=== PATIENT | female | born 1955 | race Caucasian/White ===

== ENCOUNTER 2017-07-29 00:56 | Emergency (ER) | payer OTHER ==
[2017-07-29 01:24] VITALS: BP 121/64
[2017-07-29] MEDS ORDERED: NAPROXEN 250 MG TABLET PO ONE (01:36)
[2017-07-29] MEDS ORDERED: OXYCODONE HCL IR 5 MG TABLET PO ONE (01:36)
--- NOTE | 2017-07-29 01:42 | ER Document Report ---
ED Neck/Back Problem - General Chief Complaint: Back Pain Stated Complaint: BACK PAIN Time Seen by Provider: 07/29/17 01:30 Notes: The patient is a 62-year-old female, past medical history chronic low back pain status post extensive lumbar and thoracic robotic fusion 3 weeks ago at [facility], diabetes, hypertension, hyperlipidemia, right hip replacement, presents with pain around her surgical site and spasming. She takes gabapentin and Flexeril with relief of her spasming, but she does not have any more oxycodone 5 mg left. She called her spine surgeon in [place] and will have the medications in 3 days, but she is requesting medications to tide her over until then. She recently moved to [place] from [place] and said she will call tomorrow to set up an appointment with pain management. Denies change in bowel or bladder, fevers, drainage from the wounds, saddle anesthesia, difficulty walking, focal weakness or sensory changes. TRAVEL OUTSIDE OF THE U.S. IN LAST 30 DAYS: No - Related Data Allergies/Adverse Reactions: No Known Allergies Allergy (Unverified 07/29/17 01:05) Past Medical History - General Information source: Patient - Social History Smoking Status: Never Smoker Frequency of alcohol use: None Drug Abuse: None Lives with: Spouse/Significant other Family History: Reviewed & Not Pertinent Review of Systems - Review of Systems Notes: REVIEW OF SYSTEMS: CONSTITUTIONAL: -fevers, -chills EENT: -eye pain, -difficulty swallowing, -nasal congestion CARDIOVASCULAR: -chest pain, -syncope. RESPIRATORY: -cough, -SOB GASTROINTESTINAL: -abdominal pain, -nausea, -vomiting, -diarrhea GENITOURINARY: -dysuria, -hematuria MUSCULOSKELETAL: +back pain, -neck pain SKIN: -rash or skin lesions. HEMATOLOGIC: -easy bruising or bleeding. LYMPHATIC: -swollen, enlarged glands. NEUROLOGICAL: -altered mental status or loss of consciousness, -headache, - neurologic symptoms PSYCHIATRIC: -anxiety, -depression. ALL OTHER SYSTEMS REVIEWED AND NEGATIVE. Physical Exam - Vital signs Vitals: Temp Pulse Resp BP Pulse Ox 98.5 F 88 18 121/64 99 07/29/17 01:23 07/29/17 01:23 07/29/17 01:23 07/29/17 01:23 07/29/17 01:23 - Notes Notes: PHYSICAL EXAMINATION: GENERAL: Uncomfortable. HEAD: Atraumatic, normocephalic. EYES: Pupils equal round and reactive to light, extraocular movements intact, sclera anicteric, conjunctiva are normal. ENT: nares patent, oropharynx clear without exudates. Moist mucous membranes. NECK: Normal range of motion, supple without lymphadenopathy LUNGS: Breath sounds clear to auscultation bilaterally and equal. No wheezes rales or rhonchi. HEART: Regular rate and rhythm without murmurs ABDOMEN: Soft, nontender, normoactive bowel sounds. No guarding, no rebound. No masses appreciated. EXTREMITIES: Normal range of motion, no pitting or edema. No cyanosis. BACK: Well-healing low back surgical scars without redness or drainage. No midline tenderness. 1 cm open surgical wound without drainage. NEUROLOGICAL: Cranial nerves grossly intact. Normal speech, normal gait. Normal sensory and motor exams. PSYCH: Normal mood, normal affect. SKIN: Warm, Dry, normal turgor, no rashes or lesions noted. Course - Re-evaluation Re-evalutation: Patient has no red flag signs for low back pain at this time. No evidence of infection or a spinal abscess. She has had this pain and spasming since her surgery 3 weeks ago. Her spine surgeon has called in oxycodone, but it will not be available for 3 days. Since this is her first visit to [facility] and this is a unique circumstance, will provide a one time refill of her oxycodone for 3 days, but told her that no more additional refills will be provided to her from the emergency room and that she must follow-up with pain management since she has moved to [place]. She also has an appointment with her spine surgeon in [place] in 10 days. Given strict return precautions and she understands. - Vital Signs Vital signs: Temp Pulse Resp BP Pulse Ox 98.5 F 88 18 121/64 99 07/29/17 01:23 07/29/17 01:23 07/29/17 01:23 07/29/17 01:23 07/29/17 01:23 Discharge - Discharge Clinical Impression: Back pain Qualifiers: Back pain location: low back pain Chronicity: chronic Back pain laterality: unspecified Sciatica presence: without sciatica Qualified Code(s): M54.5 - Low back pain; G89.29 - Other chronic pain; G89.29 - Other chronic pain Condition: Stable Disposition: HOME, SELF-CARE Additional Instructions: Follow-up with your neurosurgeon and pain management physician for further refills of your pain medications. LOW BACK PAIN: Three out of every four people will have an episode of disabling back pain during their lifetime. Most commonly the pain is due to straining of the muscles and ligaments in the low back. Usual treatment includes: (1) Rest on a firm surface. Avoid lying on your stomach. (2) Ice pack the painful area. After a few days, gentle heat may be used intermittently to relax the area, or ice packs can be continued. (3) Medication may be needed -- muscle relaxers and antiinflammatory medicines are commonly used. (4) As the back improves, exercises are prescribed to strengthen the back and abdominal muscles. Your doctor will advise you on the proper care for your back at each stage in your recovery. You may be better in a few days -- or healing may take several weeks. If new symptoms of a "herniated disc" (radiation of pain, numbness, or tingling down the back of the leg or weakness in the leg) occur, you should be re-examined. Further testing may be necessary. ORAL NARCOTIC MEDICATION: You have been given a prescription for pain control. This medication is a narcotic. It's best taken with food, as nausea can result if taken on an empty stomach. Don't operate machinery or drive within six hours of taking this medication. Do not combine this medicine with alcohol, or with any medication which can cause sedation (such as cold tablets or sleeping pills) unless you get permission from the physician. Narcotics tend to cause constipation. If possible, drink plenty of fluids and eat a diet high in fiber and fruits. Please be aware that prescription narcotics also have the potential for abuse. People become addicted to these medications because of the general sense of wellbeing that they induce. This feeling along with a significant reduction in tension, anxiety, and aggression provides a stimulating seductive quality to these drugs. Once your pain is under control, we encourage you to discard your unused narcotics. MUSCLE RELAXERS: Muscle relaxing medications are usually prescribed for acute muscle spasm or injury to the neck and back. They are often combined with antiinflammatory pain medication for increased relief. You may stop the muscle relaxer when the pain and stiffness have improved. Start the medication again if spasms recur. Muscle relaxers may cause drowsiness, especially with the first dose. Do not operate machinery or drive while under the effects of the medication. Most muscle relaxers last up to 24 hours. Do not combine the medication with alcohol. ICE PACKS: Apply ice packs frequently against the painful area. Many different schedules are recommended, such as "20 minutes on, 20 minutes off" or "one hour ice, two hours rest." If you need to work, you may need to go longer between ice treatments. You should plan to have the area ice packed AT LEAST one fourth of the time. The ice should be applied over the wrap, tape, or splint, or over a layer of cloth -- not directly against the skin. Some ice bags have a built-in cloth and can be put directly on the skin. WARM PACKS: After approximately two days, apply gentle heat (such as a heating pad or hot water bottle) for about 20 to 30 minutes about every two hours -- at least four times daily. Warmth and elevation will help you make a more rapid recovery , and will ease the pain considerably. Do not use HOT heat, and never apply heat for longer than 30 minutes. The continuous heat can invisibly damage skin and muscles -- even when no burn is seen on the surface. Damaged muscles can make you MORE sore. FOLLOW-UP CARE: If you have been referred to a physician for follow-up care, call the physician s office for an appointment as you were instructed or within the next two days. If you experience worsening or a significant change in your symptoms, notify the physician immediately or return to the Emergency Department at any time for re-evaluation. Prescriptions: Oxycodone HCl [Oxycontin Ir 5 Mg Tablet] 1 - 2 mg PO Q4H PRN #15 tablet PRN Reason: For Pain Referrals: [facility] [Provider Group] - Follow up as needed
== END 2017-07-29 01:50 | disposition home or self-care (01) ==
LOC: ER 00:56
DX: G89.29 Other chronic pain (principal); M54.5 Low back pain; R25.2 Cramp and spasm; Z98.1 Arthrodesis status; I10 Essential (primary) hypertension; E11.9 Type 2 diabetes mellitus without complications; Z79.899 Other long term (current) drug therapy
CPT/HCPCS: 99283

== ENCOUNTER 2017-08-05 18:15 | Emergency (ER) | payer OTHER ==
[2017-08-05 18:22] VITALS: BP 165/78
--- NOTE | 2017-08-05 18:35 | ER Document Report ---
ED Medical Screen (RME) - General Chief Complaint: Leg Swelling Stated Complaint: LEFT LEG PAIN, NUMBNESS, SWELLING Time Seen by Provider: 08/05/17 18:28 Notes: RAPID MEDICAL EVALUATION DISCLOSURE I have seen this patient as part of a Rapid Medical Evaluation and, if applicable, placed any initially appropriate orders. The patient will be seen and fully evaluated, including a full history and physical exam, by a provider ( in Main ED or Fast Track) when a room becomes available. 62-year-old female recent back surgery in July (performed at [place]) here with complaints of some left lower extremity swelling over the recent past. She is concerned she may have a blood clot so she came here for further evaluation. She has not had any chest pain or shortness of breath. Denies any prior history of DVT or family history of same. She recently engaged in an 8 hour long car ride from [facility] (just moved to the area). EXAM Left lower extremity somewhat larger than right lower extremity TRAVEL OUTSIDE OF THE U.S. IN LAST 30 DAYS: No - Related Data Allergies/Adverse Reactions: No Known Allergies Allergy (Unverified 07/29/17 01:05) Past Medical History - Past Medical History Cardiac Medical History: Reports: Hx Hypercholesterolemia, Hx Hypertension Endocrine Medical History: Reports: Hx Diabetes Mellitus Type 2 - controlled with insulin pump Renal/ Medical History: Denies: Hx Peritoneal Dialysis Psychiatric Medical History: Reports: Hx Depression Past Surgical History: Reports: Hx Hysterectomy, Hx Orthopedic Surgery - back; hip replacement Physical Exam - Vital signs Vitals: Temp Pulse Resp BP Pulse Ox 99.6 F 106 H 20 165/78 H 99 08/05/17 18:18 08/05/17 18:18 08/05/17 18:18 08/05/17 18:18 08/05/17 18:18 Course - Vital Signs Vital signs: Temp Pulse Resp BP Pulse Ox 99.6 F 106 H 20 165/78 H 99 08/05/17 18:18 08/05/17 18:18 08/05/17 18:18 08/05/17 18:18 08/05/17 18:18
[2017-08-05 19:02] LABS: ABSOLUTE BASOPHILS # (AUTO) 0.1 10^3/uL (0.0-0.2); ABSOLUTE EOSINOPHILS # (AUTO) 0.2 10^3/uL (0.0-0.6); ABSOLUTE LYMPHOCYTES (AUTO) 1.4 10^3/uL (0.5-4.7); ABSOLUTE MONOCYTES (AUTO) 0.7 10^3/uL (0.1-1.4); ABSOLUTE NEUT (AUTO) 7.2 10^3/uL (1.7-8.2); BASOPHILS % (AUTO) 0.9 % (0-2); EOSINOPHILS % (AUTO) 1.6 % (0-6); HEMATOCRIT 32.9 % (36.0-47.0); HEMOGLOBIN 11.6 g/dL (12.0-15.5); MEAN CORPUSCULAR HEMOGLOBIN 32.6 pg (27.0-33.4); MEAN CORPUSCULAR HGB CONC 35.2 g/dL (32.0-36.0); MEAN CORPUSCULAR VOLUME 93 fl (80-97); MONOCYTES % (AUTO) 7.4 % (3-13); PLATELET COUNT 507 10^3/uL (150-450); RED BLOOD COUNT 3.55 10^6/uL (3.72-5.28); SEGMENTED NEUTROPHILS % (AUTO) 75.1 % (42-78); TOTAL CELLS COUNTED % (AUTO) 100 %; WHITE BLOOD COUNT 9.5 10^3/uL (4.0-10.5)
[2017-08-05 19:18] LABS: ALANINE AMINOTRANSFERASE 31 U/L (9-52); ALBUMIN 3.9 g/dL (3.5-5.0); ALKALINE PHOSPHATASE 77 U/L (38-126); ANION GAP 8 (5-19); ASPARTATE AMINO TRANSFERASE 16 U/L (14-36); BLOOD UREA NITROGEN 12 mg/dL (7-20); CALCIUM 9.7 mg/dL (8.4-10.2); CARBON DIOXIDE 30 mmol/L (22-30); CHLORIDE 92 mmol/L (98-107); GLUCOSE 171 mg/dL (75-110); POTASSIUM 4.6 mmol/L (3.6-5.0); SODIUM 130.4 mmol/L (137-145)
[2017-08-05 19:20] LABS: BILIRUBIN,TOTAL < 0.1 mg/dL (0.2-1.3)
--- NOTE | 2017-08-05 19:48 | ER Document Report ---
ED Extremity Problem, Lower - General Mode of Arrival: Ambulatory Information source: Patient TRAVEL OUTSIDE OF THE U.S. IN LAST 30 DAYS: No <FERNANDO MARTINEZ - Last Filed: 08/05/17 22:06> <MAJOR EUBANKS - Last Filed: 08/05/17 22:14> - General Chief Complaint: Leg Swelling Stated Complaint: LEFT LEG PAIN, NUMBNESS, SWELLING Time Seen by Provider: 08/05/17 18:28 Notes: Mrs. Guevara is a 62 y.o. female with HTN, DM, HLD, depression and multiple level back fusions one month ago. Pt presents to the ED with LT lower extremity edema and pain of onset yesterday. Pt states that the edema has gone down some today compared to her edema yesterday. She reports that the pain starts at the proximal end of her lower extremity radiating down passed her knee to her lower leg. She reports that directly following her surgery she had trouble moving her LLE but has since somewhat resolved. Pt reports that she was told to try to walk daily and that she was on her feet a lot yesterday becuse she went shopping. She denies using a walker at home. (FERNANDO MARTINEZ) - Related Data Allergies/Adverse Reactions: No Known Allergies Allergy (Verified 08/05/17 18:34) Past Medical History - General Information source: Patient - Social History Smoking Status: Never Smoker Chew tobacco use (# tins/day): No Frequency of alcohol use: Occasional Drug Abuse: None Family History: Reviewed & Not Pertinent Patient has suicidal ideation: No Patient has homicidal ideation: No - Past Medical History Cardiac Medical History: Reports: Hx Hypercholesterolemia, Hx Hypertension Endocrine Medical History: Reports: Hx Diabetes Mellitus Type 2 - controlled with insulin pump Renal/ Medical History: Denies: Hx Peritoneal Dialysis Psychiatric Medical History: Reports: Hx Depression Past Surgical History: Reports: Hx Hysterectomy, Hx Orthopedic Surgery - back; hip replacement <FERNANDO MARTINEZ - Last Filed: 08/05/17 22:06> Review of Systems - Review of Systems Constitutional: No symptoms reported EENT: No symptoms reported Cardiovascular: No symptoms reported Respiratory: No symptoms reported Gastrointestinal: No symptoms reported Genitourinary: No symptoms reported Female Genitourinary: No symptoms reported Musculoskeletal: See HPI, Leg swelling - LT leg, Other - LLE pain Skin: No symptoms reported Hematologic/Lymphatic: No symptoms reported Neurological/Psychological: No symptoms reported -: Yes All other systems reviewed and negative <FERNANDO MARTINEZ - Last Filed: 08/05/17 22:06> Physical Exam <FERNANDO MARTINEZ - Last Filed: 08/05/17 22:06> <MAJOR EUBANKS - Last Filed: 08/05/17 22:14> - Vital signs Vitals: Temp Pulse Resp BP Pulse Ox 99.6 F 106 H 20 165/78 H 99 08/05/17 18:18 08/05/17 18:18 08/05/17 18:18 08/05/17 18:18 08/05/17 18:18 - Notes Notes: Physical Exam: General: Alert, appears well. HEENT: Normocephalic. Atraumatic. PERRL. Extraocular movements intact. Oropharynx clear. Neck: Supple. Non-tender. Respiratory: No respiratory distress. Clear and equal breath sounds bilaterally. Cardiovascular: Regular rate and rhythm. Abdominal: Well healed oblique scar in LT lower posterolateral abdomen. Non- tender. No distension. Normal Bowel Sounds. Back: Longitudinal scars in lumbar back. Non-tender. No deformity or step off. Extremities: Moves all four extremities. Upper extremities: Normal inspection. Normal ROM. Lower extremities: LLE with 1+ pitting edema compared to the RLE. LT calf and posteromedial thigh are tender to palpation. LT ankle with edema but without tenderness to palpation. lower extremities with ROM. Neurological: Normal cognition. AAOx3. Normal speech. Psychological: Normal affect. Normal Mood. Skin: Warm. Dry. Normal color. (FERNANDO MARTINEZ) Course - Laboratory Result Diagrams: 08/05/17 18:46 08/05/17 18:46 <FERNANDO MARTINEZ - Last Filed: 08/05/17 22:06> - Laboratory Result Diagrams: 08/05/17 18:46 08/05/17 18:46 - Diagnostic Test Radiology reviewed: Reports reviewed - Left leg venous Dopplers negative for DVT <MAJOR EUBANKS - Last Filed: 08/05/17 22:14> - Vital Signs Vital signs: Temp Pulse Resp BP Pulse Ox 99.6 F 106 H 20 165/78 H 99 08/05/17 18:18 08/05/17 18:18 08/05/17 18:18 08/05/17 18:18 08/05/17 18:18 - Laboratory Laboratory results interpreted by me: 08/05/17 08/05/17 08/05/17 18:46 18:46 18:46 RBC 3.55 L Hgb 11.6 L Hct 32.9 L Plt Count 507 H D-Dimer 1.25 H Sodium 130.4 L Chloride 92 L Glucose 171 H Total Bilirubin < 0.1 L Total Protein 6.0 L Discharge <FERNANDO MARTINEZ - Last Filed: 08/05/17 22:06> <MAJOR EUBANKS - Last Filed: 08/05/17 22:14> - Discharge Clinical Impression: Pain of left lower extremity Condition: Stable Disposition: HOME, SELF-CARE Additional Instructions: Your venous Doppler study was negative for blood clots in the leg. The pain is most likely due to muscle strain. You should elevate your leg above the heart is much as possible for the next few days and limit walking. Follow-up with your doctor or a local medical doctor if not improving. RETURN TO THE EMERGENCY ROOM IF ANY NEW OR WORSENING SYMPTOMS. Scribe Attestation: 08/05/17 22:14 I personally performed the services described in the documentation, reviewed and edited the documentation which was dictated to the scribe in my presence, and it accurately records my words and actions. (MAJOR EUBANKS) Scribe Documentation - Scribe Written by Michael:: Michael Ruiz 08/05/171947 acting as scribe for :: Santos <FERNANDO MARTINEZ - Last Filed: 08/05/17 22:06>
--- NOTE | 2017-08-06 07:06 | XCELERA REPORT ---
[address] [address] Lower Extremity Venous Evaluation Name: MAURY EDMONDSON Age: 62 yrs Gender: Female : 1955 Patient Status: Emergency Patient Location: ER Study Date: 08/05/2017 08:10 PM Procedure: Color flow and duplex imaging of the veins of the left lower extremity as well as the right Common Femoral vein. Reason For Study: recent surgery, LLE swelling; DVT? Ordering Physician: CHUCK SANDERS Performed By: Katherin Coleman Right Sided Venous Evaluation The right common femoral vein is fully compressible. Spontaneous and phasic flow is present in the right common femoral vein. Left Sided Venous Evaluation Normal vessel filling wall to wall, compression and augmentation as well as Colour flow down to the infrageniculate veins. Interpretation Summary No duplex evidence of DVT or obstruction in the left lower extremity nor in the right Common Femoral vein. : CHUCK SANDERS [place]
== END 2017-08-05 22:30 | disposition home or self-care (01) ==
LOC: ER 18:15
DX: M79.605 Pain in left leg (principal); R60.0 Localized edema; I10 Essential (primary) hypertension; E11.9 Type 2 diabetes mellitus without complications; Z96.41 Presence of insulin pump (external) (internal); Z98.1 Arthrodesis status
CPT/HCPCS: 36415; 80053; 85025; 85379; 93971; 99284

== ENCOUNTER 2017-09-01 00:09 | Emergency (ER) | payer OTHER ==
[2017-09-01 00:16] VITALS: BP 174/84
[2017-09-01] MEDS ORDERED: HYDROMORPHONE HCL INJ/PF 2 MG/ML AMPULE IM ONE (01:19)
[2017-09-01] MEDS ORDERED: HYDROCODONE/ACETAMINOPHEN 5-325 MG (6 TAB/ER DISP) PO PRN (01:19)
--- NOTE | 2017-09-01 01:25 | ER Document Report ---
HPI - HPI Patient complains to provider of: lower back pain Pain Level: 4 Context: Patient is 62-year-old female comes emergency department for chief complaint of lower back pain. She had back surgery including lumbar fusions performed 2 months ago in [place], she states that she was seeing a provider up there but now they are going to be here permanently, she does not have a primary care unit , she ran out of her gabapentin and cannot sleep, she used to be taking pain medications but no longer has these. She states she is looking for medications and referrals for care. She denies any change in her pain, states that it was keeping her from sleeping tonight, she denies any new numbness (has chronic numbness over the top and side of her left thigh), denies any bowel or bladder difficulties, denies fever. Denies history of infections after back surgery, denies history of IV drug abuse. - REPRODUCTIVE LMP: na Past Medical History - General Information source: Patient - Social History Smoking Status: Never Smoker Frequency of alcohol use: None Drug Abuse: None Lives with: Family Family History: Reviewed & Not Pertinent - Past Medical History Cardiac Medical History: Reports: Hx Hypercholesterolemia, Hx Hypertension Endocrine Medical History: Reports: Hx Diabetes Mellitus Type 2 - controlled with insulin pump Renal/ Medical History: Denies: Hx Peritoneal Dialysis Psychiatric Medical History: Reports: Hx Depression Past Surgical History: Reports: Hx Hysterectomy, Hx Orthopedic Surgery - back; hip replacement Vertical Provider Document - CONSTITUTIONAL General Appearance: Mild Distress - Patient slightly restless with restless legs , no severe distress - INFECTION CONTROL TRAVEL OUTSIDE OF THE U.S. IN LAST 30 DAYS: No - HEENT HEENT: Atraumatic, Normal ENT Exam, Normocephalic - NECK Neck: Normal Inspection - RESPIRATORY Respiratory: Breath Sounds Normal, No Respiratory Distress - CARDIOVASCULAR Cardiovascular: Regular Rate, Regular Rhythm - GI/ABDOMEN Gastrointestinal: Abdomen Soft, Abdomen Non-Tender - BACK Back: negative: Normal Inspection - Scars at the lateral lower left and middle lower back areas. No overt midline tenderness, tender over the paralumbar musculature worse on the left than the right, no saddle anesthesia, normal distal neurovascular exam. - MUSCULOSKELETAL/EXTREMETIES Musculoskeletal/Extremeties: MAEW, FROM, Non-Tender - NEURO Level of Consciousness: Awake, Alert, Appropriate Motor/Sensory: No Motor Deficit, No Sensory Deficit - DERM Integumentary: Warm, Dry, No Rash Course - Re-evaluation Re-evalutation: Patient with scars from recent surgery which are not infected, she has no new or developing deficits, she has chronic pain but no consistent medical care at this time. Medicated here, providing with gabapentin with the dose that she states that she takes, referring to primary care and pain management. Discussed return precautions in detail. Patient states satisfaction and agreement with plan. - Vital Signs Vital signs: Temp Pulse Resp BP Pulse Ox 99 F 99 18 174/84 H 97 09/01/17 00:15 09/01/17 00:15 09/01/17 00:15 09/01/17 00:15 09/01/17 00:15 Discharge - Discharge Clinical Impression: Chronic lower back pain Qualifiers: Back pain laterality: left Sciatica presence: without sciatica Qualified Code(s ): M54.5 - Low back pain Condition: Stable Disposition: HOME, SELF-CARE Additional Instructions: Take gabapentin as prescribed, continue current medications, follow-up with [facility] and with primary care. Return if you worsen including fever, new numbness, loss of bowel or bladder, or any other concerning or worsening symptoms. Prescriptions: Gabapentin 300 mg PO ASDIR #120 capsule Referrals: [facility] [Provider Group] - Follow up as needed SUZY HOGUE MD [COMMUNITY BASED STAFF] - Follow up as needed
== END 2017-09-01 01:55 | disposition home or self-care (01) ==
LOC: ER 00:09
DX: G89.29 Other chronic pain (principal); M54.5 Low back pain; Z98.1 Arthrodesis status; R20.0 Anesthesia of skin; I10 Essential (primary) hypertension; E11.9 Type 2 diabetes mellitus without complications; Z96.41 Presence of insulin pump (external) (internal); G25.81 Restless legs syndrome
CPT/HCPCS: 99283; 96372; J1170

== ENCOUNTER 2018-05-14 06:47 | Day surgery (SDC) | payer BC, MEDICAID, OTHER ==
[~2018-05-14 06:47] MED LIST: KETOROLAC TROMETHAMINE 0.45% 4 DROP/0.4 ML DROPERETTE OD PRN
[2018-05-14] MEDS: BESIFLOXACIN HCL 0.6% OPH SUSP 5 ML BOTTLE OD PRN ×4 (07:05→08:06)
[2018-05-14] MEDS: TETRACAINE HCL 0.5% OPH SOLN 4 ML OD PRN ×3 (07:05→07:33)
[2018-05-14] MEDS: TROPICAMIDE 1% OPH SOLN 3 ML OD PRN ×3 (07:05→07:25)
[2018-05-14] MEDS: CYCLOPENTOLATE 0.2%/PHENYLEPHRINE 1% OPH SOLN 2 ML OD PRN ×3 (07:05→07:25)
[2018-05-14] MEDS ORDERED: MIDAZOLAM 2 MG/2 ML INJ ONE (07:24)
[2018-05-14] MEDS: LIDOCAINE 1%/PHENYLEPHRINE 1.5% 1 ML VIAL ONE ×2 (07:44)
[2018-05-14] MEDS: CHONDR SU A NA/HYALUR INTRAOC KIT (SURGICARE) ONE ×2 (07:44)
[2018-05-14] MEDS: EPINEPHRINE INJ/PF 1 MG/1 ML AMPULE ONE ×2 (07:44)
[2018-05-14] MEDS: DORZOLAMIDE HCL 2%/TIMOLOL MALEAT 0.5% OPH SOLN 10 ML OD PRN ×2 (08:06)
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
--- NOTE | 2018-05-15 06:39 | [facility] OPERATIVE REPORT E ---
[facility] Operative Report NAME: MAURY EDMONDSON AGE: 63Y DATE OF SURGERY: 05/14/2018 ROOM: PREOPERATIVE DIAGNOSIS: CATARACT, RIGHT EYE. POSTOPERATIVE DIAGNOSIS: CATARACT, RIGHT EYE. OPERATION: Cataract extraction with insertion of an IOL of the right eye. SURGEON: JOHANN SOLOMON M.D. ANESTHESIA: Topical. PROCEDURE: After obtaining appropriate consent, the patient's right eye was prepped and draped in sterile fashion as well as the surgeon in a sterile manner and cataract surgery was started. First a paracentesis blade was used to make a side-port incision. Viscoelastic was used to inflate the anterior chamber. Next a 2.4 mm incision was made with a 2.4 mm blade, clear corneal temporally. A continuous capsulorrhexis was made using a cystotome and Utrata forceps. Following this hydrodissection was carried out to make the lens fully loose and mobile and it was rotated 90 degrees. Following this, a lmsepz-[id number] technique was used to phacoemulsify the lens with a CDE of 13.89. The remaining cortex was removed with irrigation/aspiration. Provisc was instilled into the capsular bag to inflate the bag. A SN60WF, 24.0 diopter lens was placed. The remaining viscoelastic material was removed with irrigation/aspiration. Following this, the incision was found to be watertight. Besivance was instilled into the eye and a protective shield was placed over the eye. The patient returned to the postoperative recovery in stable condition. DICTATING PHYSICIAN: JOHANN SOLOMON M.D. [id number] PHY#: [id number] ID: [id number] JOB#: [id number] ACCT: [id number] cc:JOHANN SOLOMON M.D. >
== END 2018-05-14 08:45 | disposition home or self-care (01) ==
LOC: SC 06:47
PROVIDERS: ATTEND Internal Medicine
DX: H25.13 Age-related nuclear cataract, bilateral (principal); E11.9 Type 2 diabetes mellitus without complications; Z79.4 Long term (current) use of insulin; Z79.84 Long term (current) use of oral hypoglycemic drugs; E07.9 Disorder of thyroid, unspecified; Z79.82 Long term (current) use of aspirin; I10 Essential (primary) hypertension; Z96.41 Presence of insulin pump (external) (internal)
CPT/HCPCS: 66984; 82962; V2632; J2250; J3490 ×2; J0171; J2370; 142

== ENCOUNTER 2018-06-04 07:06 | Day surgery (SDC) | payer BC ==
[~2018-06-04 07:06] MED LIST changes: +CHONDR SU A NA/HYALUR INTRAOC KIT (SURGICARE) ONE; +DORZOLAMIDE HCL 2%/TIMOLOL MALEAT 0.5% OPH SOLN 10 ML OS PRN; +EPINEPHRINE INJ/PF 1 MG/1 ML AMPULE ONE; +FENTANYL CITRATE INJ/PF 100 MCG/2 ML AMPUL ONE; -KETOROLAC TROMETHAMINE 0.45% 4 DROP/0.4 ML DROPERETTE OD PRN; +KETOROLAC TROMETHAMINE 0.45% 4 DROP/0.4 ML DROPERETTE OS PRN; +LIDOCAINE 1%/PHENYLEPHRINE 1.5% 1 ML VIAL ONE; +MIDAZOLAM 2 MG/2 ML INJ ONE
[2018-06-04] MEDS: TETRACAINE HCL 0.5% OPH SOLN 4 ML OS PRN ×3 (08:12→08:56)
[2018-06-04] MEDS: TROPICAMIDE 1% OPH SOLN 3 ML OS PRN ×3 (08:12→08:36)
[2018-06-04] MEDS: BESIFLOXACIN HCL 0.6% OPH SUSP 5 ML BOTTLE OS PRN ×4 (08:13→09:23)
[2018-06-04] MEDS: CYCLOPENTOLATE 0.2%/PHENYLEPHRINE 1% OPH SOLN 2 ML OS PRN ×3 (08:13→08:36)
[2018-06-04] MEDS ORDERED: MIDAZOLAM 2 MG/2 ML INJ ONE (08:50)
[2018-06-04] MEDS ORDERED: PROPOFOL INJ 200 MG/20 ML VIAL IV ONE (08:51)
[2018-06-04] MEDS ORDERED: FENTANYL CITRATE INJ/PF 100 MCG/2 ML AMPUL ONE (08:51)
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
--- NOTE | 2018-06-04 14:24 | [facility] OPERATIVE REPORT E ---
[facility] Operative Report NAME: MAURY EDMONDSON AGE: 63Y DATE OF SURGERY: 06/04/2018 ROOM: PREOPERATIVE DIAGNOSIS: CATARACT, LEFT EYE. POSTOPERATIVE DIAGNOSIS: CATARACT, LEFT EYE. OPERATION: Cataract extraction with insertion of an IOL of the left eye. SURGEON: JOHANN SOLOMON M.D. ANESTHESIA: Topical. PROCEDURE: After obtaining appropriate consent, the patient's left eye was prepped and draped in sterile fashion as well as the surgeon in a sterile manner and cataract surgery was started. First a paracentesis blade was used to make a side-port incision. Viscoelastic was used to inflate the anterior chamber. Next a 2.4 mm incision was made with a 2.4 mm blade, clear corneal temporally. A continuous capsulorrhexis was made using a cystotome and Utrata forceps. Following this hydrodissection was carried out to make the lens fully loose and mobile and it was rotated 90 degrees. Following this, a argtma-veq-cazfhto technique was used to phacoemulsify the lens with a CDE of 8.47. The remaining cortex was removed with irrigation/aspiration. Provisc was instilled into the capsular bag to inflate the bag. A SN60WF, 24.0 diopter lens was placed. The remaining viscoelastic material was removed with irrigation/aspiration. Following this, the incision was found to be watertight. Besivance was instilled into the eye and a protective shield was placed over the eye. The patient returned to the postoperative recovery in stable condition. DICTATING PHYSICIAN: JOHANN SOLOMON M.D. [id number] PHY#: [id number] ID: [id number] JOB#: [id number] ACCT: [id number] cc:JOHANN SOLOMON M.D. >
== END 2018-06-04 10:10 | disposition home or self-care (01) ==
LOC: SC 07:06
PROVIDERS: ATTEND Internal Medicine
DX: H25.12 Age-related nuclear cataract, left eye (principal); Z96.1 Presence of intraocular lens; I10 Essential (primary) hypertension; E11.9 Type 2 diabetes mellitus without complications; Z79.4 Long term (current) use of insulin; E07.9 Disorder of thyroid, unspecified; R01.1 Cardiac murmur, unspecified; Z96.41 Presence of insulin pump (external) (internal); Z79.899 Other long term (current) drug therapy; Z79.84 Long term (current) use of oral hypoglycemic drugs
CPT/HCPCS: 66984; 82962; V2632; J2250; J3490 ×2; J0171; J3010; J2704; J2370; 142